=== PATIENT | female | born 1995 | race Caucasian/White ===

== ENCOUNTER 2022-09-13 10:24 | Day surgery (SDC) | payer OTHER ==
[2022-09-11 17:05] VITALS: BMI 31.8
[2022-09-11 17:47] LABS: Hemoglobin 13.2 g/dL (12.0-15.5); Mean Corpuscular HGB CONC 33.8 g/dL (32.0-36.0); Mean Corpuscular Hemoglobin 31.4 pg (27.0-33.0); Mean Corpuscular Volume 92.9 fl (81.6-98.3); Mean Platelet Volume 10.2 fl (7.4-10.4); Platelet Count 311 10x3/uL (150-450); RBC Distribution Width 11.1 % (11.5-14.5); Red Blood Cell (RBC) Count 4.21 10x6/uL (3.90-5.03); White Blood Cell (WBC) Count 7.9 10x3/uL (3.5-10.5)
[2022-09-11 17:49] LABS: BHCG - Serum Negative (NEGATIVE); Pregs Control Background? CLEAR/WHITE (CLR/WHITE); Pregs Control Bar Appear? YES (CONTROL BAR)
[2022-09-13] MEDS ORDERED: CeleCOXIB 100 MG CAP ONE (10:42)
[2022-09-13] MEDS ORDERED: Famotidine/PF 20 mg/2ml Vial ONE (10:43)
[2022-09-13] MEDS ORDERED: Gabapentin 300 MG CAP ONE (10:43)
[2022-09-13] MEDS ORDERED: CeleCOXIB 100 MG CAP PO SCH (10:45)
[2022-09-13] MEDS ORDERED: Bupivacaine HCl 0.5%/Epinephrine 1:200,000/PF 30 ml Vial ONE (10:59)
[2022-09-13] MEDS ORDERED: CEFAZOLIN 2 GM VIAL ONE (11:05)
[2022-09-13] MEDS ORDERED: Propofol 1,000 MG/100 ML VIAL IV ONE (11:13)
[2022-09-13] MEDS ORDERED: SUGAMMADEX SODIUM 200 MG/2 ML VIAL ONE (11:13)
[2022-09-13] MEDS ORDERED: Fentanyl 100 MCG/2 ML VIAL ONE (11:14)
[2022-09-13] MEDS ORDERED: Midazolam HCl 2 mg/2 ml Vial ONE (11:14)
[2022-09-13] MEDS ORDERED: Ondansetron PF 4 MG/2 ML Vial ONE (11:15)
[2022-09-13] MEDS ORDERED: Dexamethasone 4 mg/ml Vial ONE (11:15)
[2022-09-13] MEDS ORDERED: Esmolol 100 MG/10 ML VIAL ONE (11:15)
[2022-09-13] MEDS ORDERED: Rocuronium Bromide 10 MG/ML (10ML VIAL) ONE (11:15)
[2022-09-13] MEDS ORDERED: Lidocaine 1% PF 5 ML VIAL ONE (11:16)
[2022-09-13] MEDS ORDERED: Ketorolac Tromethamine 30 MG/ML VIAL ONE (12:16)
[2022-09-13] MEDS ORDERED: Meperidine HCl/PF 25 MG/ML VIAL ONE (12:55)
[2022-09-13] MEDS ORDERED: HYDROcodone/Acetaminophen 5/325 mg Tablet ONE (14:20)
== END 2022-09-13 15:10 | disposition home or self-care (01) ==
LOC: CSHSDC 10:24
PROVIDERS: ATTEND Student in an Organized Health Care Education/Training Program
PROC: 0UB04ZZ Excision of Right Ovary, Percutaneous Endoscopic Approach (ICD-10-PCS; principal; 2022-09-13)
DX: D27.0 Benign neoplasm of right ovary (principal); Z91.048 Other nonmedicinal substance allergy status; Z79.899 Other long term (current) drug therapy
CPT/HCPCS: 36415; 84703; 85027; 86850; 86900; 86901; 88307; C1889; J1100; J1885; J2175; J2250; J2405; J2704; J3010; S0028

== ENCOUNTER 2024-06-17 12:32 | Outpatient (CLI) | payer OTHER ==
[2024-06-17 13:14] LABS: BHCG - Serum Negative (NEGATIVE); Pregs Control Background? CLEAR/WHITE (CLR/WHITE); Pregs Control Bar Appear? YES (CONTROL BAR)
== END 2024-06-17 12:33 | disposition home or self-care (01) ==
LOC: CSHLAB 12:32
PROVIDERS: ATTEND Surgery
DX: Z01.812 Encounter for preprocedural laboratory examination (principal); D24.2 Benign neoplasm of left breast
CPT/HCPCS: 84703